=== PATIENT | female | born 1955 | race Caucasian/White ===

== ENCOUNTER 2017-10-10 13:41 | Outpatient (CLI) | payer MEDICARE, MEDICAID | END 2017-10-10 13:42 | disposition home or self-care (01) | LOC: BICMAMMO 13:41 | PROVIDERS: ATTEND Family Medicine | DX: Z51.81 Encounter for therapeutic drug level monitoring (principal); Z80.3 Family history of malignant neoplasm of breast; Z85.3 Personal history of malignant neoplasm of breast | CPT/HCPCS: 77063; 77067 ==

== ENCOUNTER 2018-10-13 15:11 | Outpatient (CLI) | payer MEDICARE, MEDICAID ==
--- NOTE | 2018-10-13 16:06 | MMO ---
Bilateral MAMMO Bilat Screen [facility]. CLINICAL HISTORY: Patient is 62 years old and is seen for screening. The patient has the following family history of breast cancer: mother; maternal grandmother and paternal uncle. The patient has no personal history of cancer. 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 VIEWS: The views performed were: bilateral craniocaudal with tomosynthesis and bilateral mediolateral oblique with tomosynthesis. FILMS COMPARED: The present examination has been compared to prior imaging studies performed at [facility] on 08/23/2014, 09/23/2015, 10/09/2016 and 10/10/2017. MAMMOGRAM FINDINGS: There are scattered fibroglandular densities. There is a stable post-surgical scar seen in the right breast. There are no suspicious masses, suspicious calcifications, or new areas of architectural distortion. IMPRESSION: THERE IS NO MAMMOGRAPHIC EVIDENCE OF MALIGNANCY. A ROUTINE FOLLOW-UP MAMMOGRAM IN 1 YEAR IS RECOMMENDED. THE RESULTS OF THIS EXAM WERE SENT TO THE PATIENT. ACR BI-RADS Category 2 - Benign finding MAMMOGRAPHY NOTE: 1. A negative mammogram report should not delay a biopsy if a dominant of clinically suspicious mass is present. 2. Approximately 10% to 15% of breast cancers are not detected by mammography. 3. Adenosis and dense breasts may obscure an underlying neoplasm.
== END 2018-10-13 15:12 | disposition home or self-care (01) ==
LOC: BICMAMMO 15:11
PROVIDERS: ATTEND Family Medicine
DX: Z12.31 Encounter for screening mammogram for malignant neoplasm of breast (principal); Z80.3 Family history of malignant neoplasm of breast
CPT/HCPCS: 77063; 77067

== ENCOUNTER 2019-01-13 09:01 | Outpatient (CLI) | payer MEDICARE, MEDICAID ==
[2019-01-13 09:45] LABS: Estimated GFR-MDRD - POC Greater than 90
--- NOTE | 2019-01-13 12:24 | CT ---
CT ABDOMEN AND PELVIS WITH ORAL AND IV CONTRAST: Date: 01/13/19 HISTORY: Unintentional weight loss. Gastroesophageal reflux disease. Loss of appetite. Nausea and vomiting. Di arrhea. COMPARISON: 05/26/15. FINDINGS: Lung bases are clear. The liver, spleen, pancreas, adrenal glands, and right kidney are normal. There is a tiny nonobstructing left renal calculus. No free air, free fluid, or lymphadenopathy seen in the abdomen or pelvis. No calcified gallstones ar e noted. There are vascular calcifications without evidence of aneurysmal dilatation of the abdominal aorta. The patient is post hysterectomy. The small bowel loops are not abnormally dilated. There is thickening of the wall of a loop of jejunu m in the left hemiabdomen. IMPRESSION: 1. Segmental jejunal loop wall thickening. This is a nonspecific finding and may be due to infective , inflammatory, infiltrative, or neoplastic causes. 2. Nonobstructing tiny left renal calculus. POS: [facility]
[2019-01-13] MEDS ORDERED: Iopamidol 370 76% 100 ML VIAL ONE (15:25)
== END 2019-01-13 09:02 | disposition home or self-care (01) ==
LOC: CT 09:01
PROVIDERS: ATTEND Physician Assistant Medical
DX: R11.2 Nausea with vomiting, unspecified (principal); R63.4 Abnormal weight loss; R19.7 Diarrhea, unspecified; N20.0 Calculus of kidney; K63.89 Other specified diseases of intestine
CPT/HCPCS: 74177; 82565; Q9967

== ENCOUNTER 2019-11-19 10:18 | Outpatient (CLI) | payer MEDICARE, MEDICAID ==
--- NOTE | 2019-11-19 12:11 | MMO ---
Bilateral MAMMO Bilat Screen [facility]. CLINICAL HISTORY: Patient is 63 years old and is seen for screening. The patient has the following family history of breast cancer: mother; maternal grandmother and paternal uncle. The patient has no personal history of cancer. 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 VIEWS: The views performed were: bilateral craniocaudal with tomosynthesis and bilateral mediolateral oblique with tomosynthesis. FILMS COMPARED: The present examination has been compared to prior imaging studies performed at [facility] on 09/23/2015, 10/09/2016, 10/10/2017 and 10/13/2018. This study has been interpreted with the assistance of computer-aided detection. MAMMOGRAM FINDINGS: There are scattered fibroglandular densities. Finding 1: There are stable post operative changes seen in the right breast. Finding 2: There are stable benign appearing calcifications seen in the left breast. There are no suspicious masses, suspicious calcifications, or new areas of architectural distortion. IMPRESSION: THERE IS NO MAMMOGRAPHIC EVIDENCE OF MALIGNANCY. A ROUTINE FOLLOW-UP MAMMOGRAM IN 1 YEAR IS RECOMMENDED. THE RESULTS OF THIS EXAM WERE SENT TO THE PATIENT. ACR BI-RADS Category 2 - Benign finding MAMMOGRAPHY NOTE: 1. A negative mammogram report should not delay a biopsy if a dominant of clinically suspicious mass is present. 2. Approximately 10% to 15% of breast cancers are not detected by mammography. 3. Adenosis and dense breasts may obscure an underlying neoplasm. Reported by: GABRIELA HAMLIN MD Electonically Signed: [id number]
--- NOTE | 2019-11-19 13:16 | BD ---
DEXA BONE DENSITY SCAN: Date: 11/19/2019 COMPARISON: None. HISTORY: Postmenopausal female undergoing screening for osteoporosis. FINDINGS: Lumbar Spine BMD (g/cm2) L1 1.014 T-Score 0.2 L2 1.089 T-Score 0.6 L3 1.132 T-Score 0.4 L4 1.203 T-Score 1.3 L1-L4 1.119 T-Score 0.7 Femoral Neck 0.605 T-Score -2.2 Total Femur 0.852 T-Score -0.7 FRAX-WHO fracture risk assessment tool reports a 10 year fracture risk in an untreated patient at 9.9 % for major osteoporotic fracture and 1.5% for hip fracture. IMPRESSION: Femoral neck osteopenia, correlating with a moderately increased risk for fracture. POS: [facility]
== END 2019-11-19 10:19 | disposition home or self-care (01) ==
LOC: BICMAMMO 10:18
PROVIDERS: ATTEND Family Medicine
DX: Z12.31 Encounter for screening mammogram for malignant neoplasm of breast (principal); Z13.820 Encounter for screening for osteoporosis; M85.859 Other specified disorders of bone density and structure, unspecified thigh; Z80.3 Family history of malignant neoplasm of breast; Z98.890 Other specified postprocedural states
CPT/HCPCS: 77063; 77067; 77080

== ENCOUNTER 2020-08-04 10:08 | Outpatient (CLI) | payer MEDICARE, MEDICAID | END 2020-08-04 10:09 | disposition home or self-care (01) | LOC: BICCT 10:08 | PROVIDERS: ATTEND Family Medicine | DX: Z12.2 Encounter for screening for malignant neoplasm of respiratory organs (principal); Z87.891 Personal history of nicotine dependence; I25.10 Atherosclerotic heart disease of native coronary artery without angina pectoris; J98.4 Other disorders of lung | CPT/HCPCS: 71271 ==

== ENCOUNTER 2021-01-09 09:13 | Outpatient (CLI) | payer MEDICARE, MEDICAID | END 2021-01-09 09:14 | disposition home or self-care (01) | LOC: BICMAMMO 09:13 | PROVIDERS: ATTEND Student in an Organized Health Care Education/Training Program | DX: Z12.31 Encounter for screening mammogram for malignant neoplasm of breast (principal); Z80.3 Family history of malignant neoplasm of breast; Z85.3 Personal history of malignant neoplasm of breast; Z98.890 Other specified postprocedural states | CPT/HCPCS: 77063; 77067 ==

== ENCOUNTER 2021-03-02 11:14 | Outpatient (CLI) | payer MEDICARE, MEDICAID | END 2021-03-02 11:15 | disposition home or self-care (01) | LOC: BICCT 11:14 | PROVIDERS: ATTEND Family Medicine | DX: Z12.2 Encounter for screening for malignant neoplasm of respiratory organs (principal); F17.200 Nicotine dependence, unspecified, uncomplicated | CPT/HCPCS: 71271 ==

== ENCOUNTER 2022-01-12 09:45 | Outpatient (CLI) | payer OTHER, MEDICAID | END 2022-01-12 09:46 | disposition home or self-care (01) | LOC: BICMAMMO 09:45 | PROVIDERS: ATTEND Family Medicine | DX: Z12.31 Encounter for screening mammogram for malignant neoplasm of breast (principal); Z80.3 Family history of malignant neoplasm of breast; Z98.890 Other specified postprocedural states | CPT/HCPCS: 77063; 77067 ==